=== PATIENT | female | born 1930 | race Caucasian/White ===

== ENCOUNTER 2020-05-08 07:26 | Day surgery (SDC) | payer MEDICARE, OTHER ==
[2020-05-08] MEDS ORDERED: Midazolam 1 MG/ML 2 ML SDV ONE (07:32)
[2020-05-08] MEDS ORDERED: Propofol 200 MG/20 ML SDV ONE (07:32)
[2020-05-08] MEDS ORDERED: fentaNYL 100 MCG/2 ML SDV ONE (07:32)
[2020-05-08] MEDS ORDERED: Sodium Chloride 0.9% 1,000 ML IV SCH (08:00)
[2020-05-08 10:30] VITALS: PULSE 75
[2020-05-08 10:49] VITALS: BP 143/70
--- NOTE | 2020-05-08 11:00 | OR ---
DATE OF PROCEDURE: 05/08/2020 SURGEON: Maurice Morgan MD PROCEDURE: EGD. FINDINGS: Retained solid stool in the and duodenum. COMPLICATIONS: None. DOMESTIC VIOLENCE ADVOCATE: None. ANESTHESIA: MAC. PREPROCEDURE DIAGNOSIS: Dysphagia/incomplete gastric emptying. POSTPROCEDURE DIAGNOSIS: Dysphagia/incomplete gastric emptying. PROCEDURE IN DETAIL: Patient was placed in left lateral decubitus position. The EGD scope was introduced and advanced atraumatically to the second part of the duodenum. No abnormalities could be seen. However, the majority of the stomach and duodenum was full of fluid. No abnormalities noted on the esophagus. However, there was also some fluid there remaining. The patient will be sent for a gastric emptying test as this is most likely diabetic gastroparesis. Maurice Morgan MD /[id number]
== END 2020-05-08 10:54 | disposition home or self-care (01) ==
LOC: JP.SDS 07:26
PROVIDERS: ATTEND Surgery
DX: K21.9 Gastro-esophageal reflux disease without esophagitis (principal); Z01.812 Encounter for preprocedural laboratory examination; Z20.822 Contact with and (suspected) exposure to COVID-19; I13.0 Hypertensive heart and chronic kidney disease with heart failure and stage 1 through stage 4 chronic kidney disease, or unspecified chronic kidney disease; I50.9 Heart failure, unspecified; N18.9 Chronic kidney disease, unspecified; E11.22 Type 2 diabetes mellitus with diabetic chronic kidney disease
CPT/HCPCS: 43235; J2250; J2704; J3010; J7030; U0002